=== PATIENT | male | born 1990 | race American Indian/Alaskan Native ===

== ENCOUNTER 2018-01-14 09:11 | Emergency (ER) | payer OTHER ==
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
[2018-01-14 11:38] VITALS: BP 114/70
== END 2018-01-14 11:37 | disposition home or self-care (01) ==
LOC: ED 09:11
DX: M25.511 Pain in right shoulder (principal); Z88.0 Allergy status to penicillin; V89.2XXA Person injured in unspecified motor-vehicle accident, traffic, initial encounter; Y93.89 Activity, other specified; Y92.89 Other specified places as the place of occurrence of the external cause; Y99.8 Other external cause status
CPT/HCPCS: 99282